=== PATIENT | male | born 1955 | race Caucasian/White ===

== ENCOUNTER 2016-04-27 09:41 | Outpatient (CLI) | payer OTHER ==
[2016-04-27 10:36] LABS: ALT (SGPT) 39 U/L (0-55); AST (SGOT) 33 U/L (5-34); Alkaline Phosphatase 94 U/L (40-150); Anion Gap 15 mmol/L (10-20); BUN (Urea Nitrogen) 13 mg/dL (8.4-25.7); Bilirubin, Total 0.8 mg/dL (0.2-1.2); Calc. Creatinine Clearance 0 mL/min (70-130); Calcium 9.2 mg/dL (7.8-10.44); Carbon Dioxide 21 mmol/L (22-29); Chloride 107 mmol/L (98-107); Estimated GFR-MDRD 72; Globulin 3.1 g/dL (2.4-3.5); LDL Cholesterol, Calculated 166 mg/dL; Protein, Total 7.3 g/dL (6.0-8.3)
[2016-04-27 11:35] LABS: #Basophils 0.1 thou/uL (0.0-0.2); #Eosinphils 0.7 thou/uL (0.0-0.7); #Lymphocytes 1.7 thou/uL (1.20-3.40); #Monocytes 0.7 thou/uL (0.11-0.59); #Neutrophils 3.4 thou/uL (1.40-6.50); %Basophils 1.2 % (0.0-1.0); %Monocytes 11.2 % (0.0-10.0); Hematocrit 48.2 % (42.0-52.0); Mean Platelet Volume 8.5 fL (7.4-10.4); Red Blood Cell (RBC) Count 5.05 mill/uL (4.70-6.10); White Blood Cell (WBC) Count 6.6 thou/uL (4.8-10.8)
== END 2016-04-27 09:42 | disposition home or self-care (01) ==
LOC: HPCALD 09:41
PROVIDERS: ATTEND Family Medicine
DX: Z12.5 Encounter for screening for malignant neoplasm of prostate (principal); E78.5 Hyperlipidemia, unspecified; E03.9 Hypothyroidism, unspecified
CPT/HCPCS: 36415; 80053; 80061; 84443; 85025; G0103

== ENCOUNTER 2016-06-23 11:40 | Emergency (ER) | payer OTHER ==
[2016-06-23 12:22] LABS: #Basophils 0.1 thou/uL (0.0-0.2); #Eosinphils 0.5 thou/uL (0.0-0.7); #Lymphocytes 1.7 thou/uL (1.20-3.40); #Monocytes 0.8 thou/uL (0.11-0.59); #Neutrophils 4.2 thou/uL (1.40-6.50); %Basophils 1.7 % (0.0-1.0); %Eosinophils 6.3 % (0.0-10.0); %Lymphocytes 23.9 % (21.0-51.0); %Monocytes 10.6 % (0.0-10.0); %Neutrophils 57.4 % (42.0-75.0); Hemoglobin 16.9 g/dL (14.0-18.0); Mean Corpuscular HGB CONC 34.3 g/dL (32.0-36.0); Mean Corpuscular Hemoglobin 32.7 pg (27.0-31.0); Mean Corpuscular Volume 95.2 fl (80.0-94.0); Mean Platelet Volume 8.3 fL (7.4-10.4); Platelet Count 181 thou/uL (130-400); Red Blood Cell (RBC) Count 5.18 mill/uL (4.70-6.10); White Blood Cell (WBC) Count 7.3 thou/uL (4.8-10.8)
[2016-06-23] MEDS ORDERED: Ketorolac Tromethamine 60 MG/2 ML VIAL ONE (12:33)
[2016-06-23 12:36] LABS: CKMB 2.2 ng/mL (0-6.6); Troponin I Less than 0.010 ng/mL (< 0.028)
[2016-06-23 12:50] LABS: ALT (SGPT) 39 U/L (0-55); AST (SGOT) 31 U/L (5-34); Albumin 4.2 g/dL (3.5-5.0); Alkaline Phosphatase 103 U/L (40-150); Anion Gap 14 mmol/L (10-20); BUN (Urea Nitrogen) 18 mg/dL (8.4-25.7); Bilirubin, Total 0.7 mg/dL (0.2-1.2); Calc. Creatinine Clearance 0 mL/min (70-130); Calcium 9.1 mg/dL (7.8-10.44); Carbon Dioxide 20 mmol/L (22-29); Chloride 106 mmol/L (98-107); Estimated GFR-MDRD 79; Globulin 3.4 g/dL (2.4-3.5); Glucose 102 mg/dL (70-105); Potassium 4.1 mmol/L (3.5-5.1); Protein, Total 7.6 g/dL (6.0-8.3); Sodium 136 mmol/L (136-145)
--- NOTE | 2016-06-23 20:45 | RAD ---
CHEST TWO VIEWS 06/23/16 Comparison is made with a 09/15/09 study. The patient is known to have situs inversus. The heart is normal in size. There is no vascular congestion, edema, or pleural effusion. No lobar i nfiltrate was appreciated. The mediastinum was unremarkable. IMPRESSION: No acute finding. POS: HOME
== END 2016-06-23 13:09 | disposition home or self-care (01) ==
LOC: BURERS 11:40
DX: S29.011A Strain of muscle and tendon of front wall of thorax, initial encounter (principal); E03.9 Hypothyroidism, unspecified; E78.5 Hyperlipidemia, unspecified; Z79.899 Other long term (current) drug therapy; V89.2XXA Person injured in unspecified motor-vehicle accident, traffic, initial encounter
CPT/HCPCS: 36415; 71020; 80053; 82553; 84484; 85025; 93005; J1885

== ENCOUNTER 2017-09-06 11:24 | Emergency (ER) | payer OTHER ==
[2017-09-06] MEDS ORDERED: HYDROcodone/Acetaminophen 10/325 mg Tablet ONE (11:32)
[2017-09-06] MEDS ORDERED: methylPREDNISolone Sod Succ/PF 125 MG/2 ML VIAL ONE (11:33)
[2017-09-06] MEDS ORDERED: hydrOXYzine 25 MG TAB ONE (11:33)
== END 2017-09-06 12:30 | disposition home or self-care (01) ==
LOC: BURERS 11:24
DX: T63.441A Toxic effect of venom of bees, accidental (unintentional), initial encounter (principal); E03.9 Hypothyroidism, unspecified; E78.5 Hyperlipidemia, unspecified; F17.220 Nicotine dependence, chewing tobacco, uncomplicated; Z79.899 Other long term (current) drug therapy
CPT/HCPCS: 99282; J2930

== ENCOUNTER 2023-04-25 13:53 | Outpatient (CLI) | payer OTHER | END 2023-04-25 13:54 | disposition home or self-care (01) | LOC: BURRAD 13:53 | PROVIDERS: ATTEND Family Medicine | DX: M54.50 Low back pain, unspecified (principal); M47.816 Spondylosis without myelopathy or radiculopathy, lumbar region | CPT/HCPCS: 72110 ==